=== PATIENT | female | born 1970 ===

== ENCOUNTER 2022-07-10 14:16 | Outpatient (CLI) | payer MEDICARE, OTHER, SELFPAY ==
[2022-07-10 14:41] LABS: Hematocrit 44.3 % (37.0-47.0); Hemoglobin 14.1 g/dL (12.0-15.0); Mean Corpuscular HGB Conc 31.8 g/dl (32-36); Mean Platelet Volume 9.7 fl (7.4-10.4); Platelet Count Result 249 k/mm3 (150-375); Red Blood Count 4.87 M/mm3 (4.2-5.4); Red Cell Distribution Width 14.4 % (11.5-14.5); White Blood Count 5.8 K/mm3 (4.5-10.0)
[2022-07-10 15:31] LABS: Alanine Aminotransferase 13 U/L (6-35); Albumin Level 4.4 g/dL (3.5-5.1); Alkaline Phosphatase 92 U/L (38-126); Anion Gap 12 mmol/L (8-16); Aspartate Amino Transferase 20 U/L (14-36); Bilirubin,Total 0.3 mg/dL (0.2-1.3); Blood Urea Nitrogen 10 mg/dL (7-17); CRP 1.1 mg/dL (<1.0); Calcium 9.7 mg/dL (8.4-10.2); Carbon Dioxide 29 mmol/L (22-30); Chloride 99 mmol/L (98-107); Estimated Glomerular Filt Rate > 60; Glucose 110 mg/dL (65-110); Potassium 3.5 mmol/L (3.4-5.0); Sodium 140 mmol/L (137-145)
[2022-07-10 15:45] LABS: Appearance Urine Slightly Cloudy (Clear); Bilirubin Urine Negative (Negative); Blood Urine Negative (Negative); Color Urine Yellow (Yellow); Glucose Urine UA Negative (Negative); Ketones Urine Negative (Negative); Leukocyte Esterase Ur 2+ LEU/UL (Negative); Nitrate Urine Negative (Negative); Protein Urine Negative (Negative); Specific Grav Ur 1.015 (1.001-1.035); Urobilinogen Urine 0.2 mg/dL (<2.0); pH Urine 6.5 (5.0-9.0)
[2022-07-10 15:57] LABS: Bacteria Urine Trace /hpf; Erythrocyte Sedimentation Rate 13 mm/hr (0-20); Mucus Urine Rare /lpf; Squamous Epithelial Cell Urine Rare /hpf (Few); WBC Urine 51-75 /hpf
[2022-07-10 16:08] LABS: Add Urine Microscopic? YES
== END 2022-07-10 14:17 | disposition home or self-care (01) ==
PROVIDERS: Visit Provider Internal Medicine
DX: L40.50 Arthropathic psoriasis, unspecified (principal); R89.9 Unspecified abnormal finding in specimens from other organs, systems and tissues; M19.90 Unspecified osteoarthritis, unspecified site
CPT/HCPCS: 36415; 80053; 81001; 85027; 85652; 86140; 87086; 87088

== ENCOUNTER 2022-10-31 15:18 | Outpatient (CLI) | payer MEDICARE, OTHER, SELFPAY ==
--- NOTE | ~2022-10-31 | XR_ITS ---
XR lumbar spine min 4V DATE: 10/31/2022 16:00 INDICATION: Arthropathic psoriasis TECHNIQUE: AP, lateral, bilateral oblique views, coned lateral lumbosacral view COMPARISON: None FINDINGS: There is osteopenia. There is mild levoscoliosis of the lumbar spine. Normal alignment of the lumbar vertebrae. No fracture or bone destruction, spondylolysis or spondylol isthesis is evident. Mild degenerative disc disease at L1-2, L2-3, L3-4. Moderate degenerative disc disease at L4-5 and L5-S1. The sacroiliac joints are normally aligned and intact, without evidence of erosive change or ankylosi s. Mildly severe bilateral hip osteoarthritis. IMPRESSION: Osteopenia Mild lumbar levoscoliosis Mild to moderate degenerative disc disease lumbar and lumbosacral spine Moderately severe bilateral hip osteoarthritis Reviewed, dictated and finalized at location L. [employer]EEP[employer] SUPERVISOR
--- NOTE | ~2022-10-31 | XR_ITS ---
EXAMINATION: XR sacrum coccyx min 2V DATE: 10/31/2022 16:00 INDICATION: Arthropathic psoriasis, unspecified. Sacrococcygeal pain. TECHNIQUE: 3 views of the sacrum and coccyx on 4 radiographs were obtained. COMPARISON: None. FINDINGS: Bone alignment is normal. No fracture. There is mild osteoarthritis of the sacroiliac joint s and hip joints. IMPRESSION: 1. Mild polyarticular osteoarthritis. Reviewed, dictated and finalized at location A. T [employer] OFFICER
== END 2022-10-31 15:19 | disposition home or self-care (01) ==
PROVIDERS: PCP Family Medicine; Visit Provider Internal Medicine
DX: L40.50 Arthropathic psoriasis, unspecified (principal); M53.3 Sacrococcygeal disorders, not elsewhere classified; M85.88 Other specified disorders of bone density and structure, other site; M16.0 Bilateral primary osteoarthritis of hip; M51.36 Other intervertebral disc degeneration, lumbar region
CPT/HCPCS: 72110; 72220